=== PATIENT | male | born 1950 | race African-American/Black ===

== ENCOUNTER 2016-09-15 12:52 | Emergency (ER) | payer MEDICARE, OTHER ==
[2016-09-15] MEDS ORDERED: SODIUM CHLORIDE 0.9% 1,000 ML IV STA (14:31)
--- NOTE | 2016-09-15 14:33 | ED ---
General Adult HPI - General Chief complaint: Abdominal Pain Stated complaint: R side pain Time Seen by Provider: 09/15/16 14:26 Source: patient, RN notes reviewed Mode of arrival: ambulatory Limitations: no limitations - History of Present Illness Initial comments: Patient is 66-year-old male significant past medical history for hypertension, diabetes, who presents emergency room today with chief complaint of right sided lower back pain. Denies any injury or trauma. Does admit that it's been ongoing over the last 3 days. Denies anything that makes it better or worse. Does admit that he went to [facility] was given ibuprofen which has not made any difference with his symptoms. Patient denies any other complaints or symptoms at this time. Patient denies any recent fever, chills, shortness of breath, chest pain, abdominal pain, nausea or vomiting, numbness or tingling, dysuria or hematuria, constipation or diarrhea, headaches or visual changes, or any other complaints. - Related Data Home Medications Medication Instructions Recorded Confirmed Donepezil [Aricept] 5 mg PO DAILY 09/15/16 09/15/16 Insulin Aspart [NovoLOG] 6 unit SQ AC-TID 09/15/16 09/15/16 Insulin Glargine [Lantus] 25 unit SQ HS 09/15/16 09/15/16 Multivitamins, Thera [Multivitamin 1 tab PO DAILY 09/15/16 09/15/16 (formulary)] cloNIDine HCL 0.3 mg PO TID 09/15/16 09/15/16 hydrALAZINE HCL 50 mg PO BID 09/15/16 09/15/16 Previous Rx's Medication Instructions Recorded Ibuprofen [Motrin] 600 mg PO Q6HR PRN #20 day 09/15/16 Allergies Allergy/AdvReac Type Severity Reaction Status Date / Time No Known Allergies Allergy Verified 09/15/16 14:44 Review of Systems ROS Statement: Those systems with pertinent positive or pertinent negative responses have been documented in the HPI. ROS Other: All systems not noted in ROS Statement are negative. Past Medical History Past Medical History: Diabetes Mellitus, Hypertension History of Any Multi-Drug Resistant Organisms: None Reported Past Surgical History: Orthopedic Surgery Past Psychological History: No Psychological Hx Reported Smoking Status: Current every day smoker Past Alcohol Use History: None Reported Past Drug Use History: None Reported General Exam - General Exam Comments Initial Comments: General: The patient is awake and alert, in no distress, and does not appear acutely ill. Eye: Pupils are equal, round and reactive to light, extra-ocular movements are intact. No nystagmus. There is normal conjunctiva bilaterally. No signs of icterus. Ears, nose, mouth and throat: There are moist mucous membranes and no oral lesions. Neck: The neck is supple, there is no tenderness or JVD. Cardiovascular: There is a regular rate and rhythm. No murmur, rub or gallop is appreciated. Respiratory: Lungs are clear to auscultation, respirations are non-labored, breath sounds are equal. No wheezes, stridor, rales, or rhonchi. Gastrointestinal: Soft, non-distended, non-tender abdomen without masses or organomegaly noted. There is no rebound or guarding present. No CVA tenderness. Bowel sounds are unremarkable. Musculoskeletal: Normal ROM, no tenderness. Strength 5/5. Sensation intact. Pulses equal bilaterally 2+. Neurological: A&O x 3. CN II-XII intact, There are no obvious motor or sensory deficits. Coordination appears grossly intact. Speech is normal. Skin: Skin is warm and dry and no rashes or lesions are noted. Psychiatric: Cooperative, appropriate mood & affect, normal judgment. Limitations: no limitations Course Vital Signs 09/15/16 09/15/16 09/15/16 13:22 14:57 16:30 Temperature 98.5 F 98.0 F Pulse Rate 67 55 L 60 Respiratory 20 16 16 Rate Blood Pressure 169/95 176/88 165/85 O2 Sat by Pulse 99 98 96 Oximetry 09/15/16 09/15/16 17:33 18:34 Temperature 97.9 F 97.8 F Pulse Rate 53 L 51 L Respiratory 18 18 Rate Blood Pressure 200/94 207/91 O2 Sat by Pulse 97 97 Oximetry Medical Decision Making - Medical Decision Making CT reviewed and shows no acute changes. Labs been reviewed. Patient resting comfortably here in the emergency room. At this time patient discharged home advise follow up with family doctor over the next 2 days. Advised return if any symptoms increase or worsen. Patient states understanding and is in agreement. - Lab Data Result diagrams: 09/15/16 17:15 09/15/16 17:15 Lab Results 09/15/16 09/15/16 09/15/16 Range/Units 15:36 17:15 17:15 WBC 6.6 (3.8-10.6) k/uL RBC 5.27 (4.30-5.90) m/uL Hgb 15.2 (13.0-17.5) gm/dL Hct 47.6 (39.0-53.0) % MCV 90.2 (80.0-100.0) fL MCH 28.9 (25.0-35.0) pg MCHC 32.0 (31.0-37.0) g/dL RDW 13.4 (11.5-15.5) % Plt Count 191 (150-450) k/uL Neutrophils % 57 % Lymphocytes % 33 % Monocytes % 4 % Eosinophils % 3 % Basophils % 1 % Neutrophils # 3.8 (1.3-7.7) k/uL Lymphocytes # 2.2 (1.0-4.8) k/uL Monocytes # 0.2 (0-1.0) k/uL Eosinophils # 0.2 (0-0.7) k/uL Basophils # 0.1 (0-0.2) k/uL PT (9.0-12.0) sec INR (<1.1) APTT (22.0-30.0) sec Sodium 146 H (137-145) mmol/L Potassium 4.2 (3.5-5.1) mmol/L Chloride 110 H (98-107) mmol/L Carbon Dioxide 20 L (22-30) mmol/L Anion Gap 16 mmol/L BUN 18 (9-20) mg/dL Creatinine 1.20 (0.66-1.25) mg/dL Est GFR (MDRD) Af Amer >60 (>60 ml/min/1.73 sqM) Est GFR (MDRD) Non-Af >60 (>60 ml/min/1.73 sqM) Glucose 82 (74-99) mg/dL Calcium 10.1 (8.4-10.2) mg/dL Total Bilirubin 0.9 (0.2-1.3) mg/dL AST 21 (17-59) U/L ALT 32 (21-72) U/L Alkaline Phosphatase 77 (38-126) U/L Total Protein 8.0 (6.3-8.2) g/dL Albumin 5.1 H (3.5-5.0) g/dL Amylase 98 (30-110) U/L Lipase 127 (23-300) U/L Urine Color Yellow Urine Appearance Clear (Clear) Urine pH 6.5 (5.0-8.0) Ur Specific [place] 1.010 (1.001-1.035) Urine Protein 1+ H (Negative) Urine Glucose (UA) Negative (Negative) Urine Ketones Negative (Negative) Urine Blood Negative (Negative) Urine Nitrite Negative (Negative) Urine Bilirubin Negative (Negative) Urine Urobilinogen <2.0 (<2.0) mg/dL Ur Leukocyte Esterase Negative (Negative) Urine RBC <1 (0-5) /hpf Urine WBC 1 (0-5) /hpf Hyaline Casts 4 H (0-2) /lpf Urine Mucus Rare H (None) /hpf 09/15/16 Range/Units 17:15 WBC (3.8-10.6) k/uL RBC (4.30-5.90) m/uL Hgb (13.0-17.5) gm/dL Hct (39.0-53.0) % MCV (80.0-100.0) fL MCH (25.0-35.0) pg MCHC (31.0-37.0) g/dL RDW (11.5-15.5) % Plt Count (150-450) k/uL Neutrophils % % Lymphocytes % % Monocytes % % Eosinophils % % Basophils % % Neutrophils # (1.3-7.7) k/uL Lymphocytes # (1.0-4.8) k/uL Monocytes # (0-1.0) k/uL Eosinophils # (0-0.7) k/uL Basophils # (0-0.2) k/uL PT 10.7 (9.0-12.0) sec INR 1.1 (<1.1) APTT 24.3 (22.0-30.0) sec Sodium (137-145) mmol/L Potassium (3.5-5.1) mmol/L Chloride (98-107) mmol/L Carbon Dioxide (22-30) mmol/L Anion Gap mmol/L BUN (9-20) mg/dL Creatinine (0.66-1.25) mg/dL Est GFR (MDRD) Af Amer (>60 ml/min/1.73 sqM) Est GFR (MDRD) Non-Af (>60 ml/min/1.73 sqM) Glucose (74-99) mg/dL Calcium (8.4-10.2) mg/dL Total Bilirubin (0.2-1.3) mg/dL AST (17-59) U/L ALT (21-72) U/L Alkaline Phosphatase (38-126) U/L Total Protein (6.3-8.2) g/dL Albumin (3.5-5.0) g/dL Amylase (30-110) U/L Lipase (23-300) U/L Urine Color Urine Appearance (Clear) Urine pH (5.0-8.0) Ur Specific [place] (1.001-1.035) Urine Protein (Negative) Urine Glucose (UA) (Negative) Urine Ketones (Negative) Urine Blood (Negative) Urine Nitrite (Negative) Urine Bilirubin (Negative) Urine Urobilinogen (<2.0) mg/dL Ur Leukocyte Esterase (Negative) Urine RBC (0-5) /hpf Urine WBC (0-5) /hpf Hyaline Casts (0-2) /lpf Urine Mucus (None) /hpf Disposition Clinical Impression: Acute low back pain Disposition: HOME SELF-CARE Condition: Stable Instructions: Acute Low Back Pain (ED) Additional Instructions: Please use medication as discussed. Please follow-up with family doctor in the next 2 days. Please return to emergency room if the symptoms increase or worsen or for any other concerns. Prescriptions: Ibuprofen [Motrin] 600 mg PO Q6HR PRN #20 day PRN Reason: Pain Referrals: Nai Hopper MD [Primary Care Provider] - 1-2 days Time of Disposition: 18:44
--- NOTE | 2016-09-15 15:33 | XR ---
EXAMINATION TYPE: XR KUB DATE OF EXAM: 09/15/2016 COMPARISON: NONE HISTORY: Right flank pain TECHNIQUE: One view abdominal series FINDINGS: The osseous structures are intact. The bowel gas pattern is nonspecific. Retained fecal debris throu ghout the colon. Curvature the spine with hypertrophic and degenerative changes. Arthropathy of the h ips correlate for femoral acetabular impingement. Calcifications in the pelvis are nonspecific but may be vascular. IMPRESSION: 1. Nonspecific abdomen.
[2016-09-15 15:56] LABS: Appearance,Urine Clear (Clear); Bilirubin,Urine Negative (Negative); Glucose,Urine (UA) Negative (Negative); Ketones,Urine Negative (Negative); Leukocyte Esterase,Urine Negative (Negative); Mucus,Urine Rare /hpf; Nitrite,Urine Negative (Negative); PH, Urine 6.5 (5.0-8.0); Particle Count 861; Protein,Urine 1+ (Negative); RBC,Urine <1 /hpf (0-5); UA Billing (MACRO vs. MICRO) MICRO; Urobilinogen,Urine <2.0 mg/dL (<2.0); WBC,Urine 1 /hpf (0-5)
[2016-09-15] MEDS ORDERED: KETOROLAC 30 MG/ML 1 ML VIAL IVP STA (17:23)
[2016-09-15 17:34] VITALS: RESP 18
[2016-09-15 17:35] LABS: Basophils # (A) 0.1 k/uL (0-0.2); Basophils % (A) 1 %; CH 28.2; CHCM 31.4; Eosinophils # (A) 0.2 k/uL (0-0.7); Eosinophils % (A) 3 %; HCT 47.6 % (39.0-53.0); HDW 2.18; HGB 15.2 gm/dL (13.0-17.5); INR 1.1 (<1.1); Luc # (Auto) 0.13; Luc % (Auto) 2; Lymphocytes # (A) 2.2 k/uL (1.0-4.8); Lymphocytes % (A) 33 %; MCH 28.9 pg (25.0-35.0); MCV 90.2 fL (80.0-100.0); Mean Platelet Volume 7.3; Monocytes # (A) 0.2 k/uL (0-1.0); Monocytes % (A) 4 %; Neutrophils # (A) 3.8 k/uL (1.3-7.7); Neutrophils % (A) 57 %; Partial Thromboplastin Time 24.3 sec (22.0-30.0); Prothrombin Time 10.7 sec (9.0-12.0); RBC 5.27 m/uL (4.30-5.90); RDW 13.4 % (11.5-15.5); WBC 6.6 k/uL (3.8-10.6); WBC (Perox) 7.12
[2016-09-15] MEDS ORDERED: cloNIDine HCL 0.1 MG TAB PO STA (17:35)
[2016-09-15] MEDS ORDERED: hydrALAZINE HCL 50 MG TAB PO STA (17:37)
[2016-09-15 17:45] LABS: ALT 32 U/L (21-72); AST 21 U/L (17-59); Alkaline Phosphatase 77 U/L (38-126); Amylase 98 U/L (30-110); Anion Gap 16 mmol/L; Blood Urea Nitrogen 18 mg/dL (9-20); Calcium 10.1 mg/dL (8.4-10.2); Carbon Dioxide 20 mmol/L (22-30); Chloride 110 mmol/L (98-107); Glucose 82 mg/dL (74-99); Non-African American GFR(MDRD) >60 (>60 ml/min/1.73 sqM); Potassium 4.2 mmol/L (3.5-5.1); Sodium 146 mmol/L (137-145); Total Bilirubin 0.9 mg/dL (0.2-1.3)
--- NOTE | 2016-09-15 18:30 | CT ---
EXAMINATION TYPE: CT abdomen pelvis wo con DATE OF EXAM: 09/15/2016 COMPARISON: NONE HISTORY: RLQ pain. CT DLP: 274.2 mGycm Automated exposure control for dose reduction was used. TECHNIQUE: Helical acquisition of images was performed from the lung bases through the pelvis. FINDINGS: There is mild subsegmental atelectasis at the posterior lung bases. There is no pleural effusion. Liver spleen pancreas gallbladder appear normal. Bile ducts are not dilated. There is a 2.5 cm cortic al cyst on the upper pole right kidney. There is a 3 cm cortical cyst upper pole left kidney. There i s no hydronephrosis. Ureters are not dilated. There is no retroperitoneal adenopathy. There is no asc ites. Bladder distends smoothly. I see no bony destructive process. Appendix appears normal. There is atherosclerotic vascular calcification. There is mild retained fecal material in the colon. IMPRESSION: NORMAL APPENDIX. MINIMAL CONSTIPATION. ATHEROSCLEROTIC VASCULAR DISEASE. BILATERAL RENAL CORTICAL CYS TS. MINIMAL SUBSEGMENTAL ATELECTASIS AT THE LUNG BASES.
[2016-09-15 18:35] VITALS: PULSE 51; TEMP 97.8
[2016-09-15 19:02] VITALS: BP 191/93
== END 2016-09-15 19:02 | disposition home or self-care (01) ==
LOC: EC 12:52
DX: M54.5 Low back pain (principal); E11.9 Type 2 diabetes mellitus without complications; I10 Essential (primary) hypertension; F17.200 Nicotine dependence, unspecified, uncomplicated; Z79.4 Long term (current) use of insulin; Z79.899 Other long term (current) drug therapy
CPT/HCPCS: 99284 ×2; 96374 ×2; 96361 ×3; 36415; 80053; 82150; 83690; 85025; 85610; 85730; 81001; 74000; 74176; J1885

== ENCOUNTER 2017-08-02 15:57 | Inpatient (IN) | payer MEDICARE, OTHER ==
[2017-08-02] MEDS ORDERED: SODIUM CHLORIDE 0.9% 500 ML IV STA (15:59)
[2017-08-02] MEDS ORDERED: SODIUM CHLORIDE 0.9% 1,000 ML IV STA (15:59)
--- NOTE | 2017-08-02 16:08 | ED ---
Syncope HPI - General Source: patient, EMS, RN notes reviewed, old records reviewed Mode of arrival: EMS - History of Present Illness MD Complaint: loss of consciousness <Osvaldo Carvalho - Last Filed: 08/02/17 16:21> <Abdirahman Umanzor - Last Filed: 08/02/17 17:40> - General Stated Complaint: syncope Time Seen by Provider: 08/02/17 15:57 - History of Present Illness Initial Comments: This is a 67-year-old male history of hypertension diabetes and senile dementia who had apparently a syncopal episode at home just prior to admission some unclear how long he was actually out for he had is reported from family members to EMS personnel that he had seizure-like activity. EMS was called and when they responded he was awake alert oriented 3 but when they got him up to move to the stretcher he passed out for about 15-20 seconds with no evidence of any seizure activity. Regain consciousness as soon as he became horizontal on the floor. No reports of trauma no fevers chills or sweats no focal weakness no headaches no other symptoms reported. He did maintain adequate pulse and blood pressure and glucose. Patient does admit he is a smoker. He did smoke just prior to arrival. (Osvaldo Carvalho) - Related Data Home Medications Medication Instructions Recorded Confirmed Multivitamins, Thera [Multivitamin 1 tab PO DAILY 09/15/16 08/02/17 (formulary)] hydrALAZINE HCL 100 mg PO BID 09/15/16 08/02/17 Donepezil [Aricept] 10 mg PO DAILY 08/02/17 08/02/17 amLODIPine [Norvasc] 10 mg PO DAILY 08/02/17 08/02/17 Allergies Allergy/AdvReac Type Severity Reaction Status Date / Time No Known Allergies Allergy Verified 09/15/16 14:44 Review of Systems ROS Other: All systems not noted in ROS Statement are negative. <Osvaldo Carvalho - Last Filed: 08/02/17 16:21> ROS Other: All systems not noted in ROS Statement are negative. <Abdirahman Umanzor - Last Filed: 08/02/17 17:40> ROS Statement: Those systems with pertinent positive or pertinent negative responses have been documented in the HPI. Past Medical History Past Medical History: Diabetes Mellitus, Hypertension History of Any Multi-Drug Resistant Organisms: None Reported Past Surgical History: Orthopedic Surgery Past Psychological History: No Psychological Hx Reported Smoking Status: Current every day smoker Past Alcohol Use History: None Reported Past Drug Use History: None Reported <Osvaldo Carvalho - Last Filed: 08/02/17 16:21> General Exam General appearance: alert, in no apparent distress Head exam: Present: atraumatic, normocephalic, normal inspection Eye exam: Present: normal appearance, PERRL, EOMI. Absent: scleral icterus, conjunctival injection, periorbital swelling ENT exam: Present: mucous membranes dry Neck exam: Present: normal inspection. Absent: tenderness, meningismus, lymphadenopathy Respiratory exam: Present: normal lung sounds bilaterally. Absent: respiratory distress, wheezes, rales, rhonchi, stridor Cardiovascular Exam: Present: regular rate, normal rhythm, normal heart sounds. Absent: systolic murmur, diastolic murmur, rubs, gallop, clicks GI/Abdominal exam: Present: soft, normal bowel sounds. Absent: distended, tenderness, guarding, rebound, rigid Extremities exam: Present: normal inspection, full ROM, normal capillary refill. Absent: tenderness, pedal edema, joint swelling, calf tenderness Back exam: Present: normal inspection Neurological exam: Present: alert, oriented X3, CN II-XII intact Psychiatric exam: Present: normal affect, normal mood Skin exam: Present: warm, dry, intact, normal color. Absent: rash <Osvaldo Carvalho - Last Filed: 08/02/17 16:21> <Abdirahman Umanzor - Last Filed: 08/02/17 17:40> - General Exam Comments Initial Comments: This is a well-developed well-nourished awake alert oriented 3 male (DevenOsvaldo) General: The patient is awake and alert, in no distress at all GCS is 15, he is confused but very pleasant Skin: Skin is warm and dry and no rashes or lesions are noted. Eye: Pupils are equal, round and reactive to light, extra-ocular movements are intact; there is normal conjunctiva bilaterally. Ears, nose, mouth and throat: There are moist mucous membranes and no oral lesions. Neck: The neck is supple, there is no tenderness or JVD. Cardiovascular: Is regular rate and rhythms Respiratory: To auscultation bilateral, crease breath sounds bilateral Gastrointestinal: Soft, non-distended, non-tender abdomen without masses or organomegaly noted. There is no rebound or guarding present. Bowel sounds are unremarkable. Back: There is no tenderness to palpation in the midline. There is no obvious deformity. Musculoskeletal: Normal ROM, no tenderness, There is no pedal edema. There is no calf tenderness or swelling. No cords were appreciated. Neurological: CN II-XII intact, Cranial nerves III through XII are intact. There are no obvious motor or sensory deficits. Coordination appears grossly intact. Speech is normal. Psychiatric: Cooperative, seems happy at this time him and homicidalideation (Abdirahman Umanzor) Course <Osvaldo Carvalho - Last Filed: 08/02/17 16:21> <Abdirahman Umanzor - Last Filed: 08/02/17 17:40> Vital Signs 08/02/17 08/02/17 15:59 17:27 Temperature 99.0 F Pulse Rate 89 Pulse Rate [ 78 Right Sitting Pulse Oximetery ] Pulse Rate [ 80 Right Standing Pulse Oximetery ] Pulse Rate [ 72 Right Supine Pulse Oximetery ] Respiratory 18 Rate Blood Pressure 162/69 Blood Pressure 118/66 [Right Arm Sitting] Blood Pressure 136/70 [Right Arm Standing] Blood Pressure 116/63 [Right Arm Supine] O2 Sat by Pulse 92 L Oximetry Patient is reassessed, his CBC d-dimer, compressive metabolic panel unremarkable creatinine is 1.[address] is normal chest x-rays normal. He passed out twice within 20 minutes and family believes he had a seizure we need to assess him further since he has dementia and is not a good historian been admitted to Dr. Steiner's service and mobile up will consult neurology (Abdirahman Umanzor) - Reevaluation(s) Reevaluation #1: 08/02/17 16:21 The patient's care is endorsed to Dr. Umanzor at our shift change (Osvaldo Carvalho) EKG Findings - EKG Results: EKG: interpreted by [facility], sinus rhythm (Sinus rhythm rate of 83. Interval 156 QRS duration 78 QT since QTC 372/[address] configuration) <Osvaldo Carvalho - Last Filed: 08/02/17 16:21> Medical Decision Making - Lab Data Result diagrams: 08/02/17 16:32 08/02/17 16:16 <Abdirahman Umanzor - Last Filed: 08/02/17 17:40> - Lab Data Lab Results 08/02/17 08/02/17 08/02/17 Range/Units 16:16 16:16 16:16 WBC (3.8-10.6) k/uL RBC (4.30-5.90) m/uL Hgb (13.0-17.5) gm/dL Hct (39.0-53.0) % MCV (80.0-100.0) fL MCH (25.0-35.0) pg MCHC (31.0-37.0) g/dL RDW (11.5-15.5) % Plt Count (150-450) k/uL Neutrophils % % Lymphocytes % % Monocytes % % Eosinophils % % Basophils % % Neutrophils # (1.3-7.7) k/uL Lymphocytes # (1.0-4.8) k/uL Monocytes # (0-1.0) k/uL Eosinophils # (0-0.7) k/uL Basophils # (0-0.2) k/uL PT 11.1 (9.0-12.0) sec INR 1.1 (<1.2) APTT 18.9 L (22.0-30.0) sec D-Dimer 0.55 (<0.60) mg/L FEU Sodium 144 (137-145) mmol/L Potassium 3.7 (3.5-5.1) mmol/L Chloride 110 H (98-107) mmol/L Carbon Dioxide 22 (22-30) mmol/L Anion Gap 12 mmol/L BUN 22 H (9-20) mg/dL Creatinine 1.28 H (0.66-1.25) mg/dL Est GFR (CKD-EPI)AfAm 67 (>60 ml/min/1.73 sqM) Est GFR (CKD-EPI)NonAf 58 (>60 ml/min/1.73 sqM) Glucose 123 H (74-99) mg/dL Calcium 8.8 (8.4-10.2) mg/dL Magnesium 1.9 (1.6-2.3) mg/dL Total Bilirubin 0.4 (0.2-1.3) mg/dL AST 25 (17-59) U/L ALT 31 (21-72) U/L Alkaline Phosphatase 54 (38-126) U/L Total Creatine Kinase 260 H (55-170) U/L CK-MB (CK-2) 2.7 H* (0.0-2.4) ng/mL CK-MB (CK-2) Rel Index 1.0 Troponin I <0.012 (0.000-0.034) ng/mL Total Protein 6.1 L (6.3-8.2) g/dL Albumin 3.8 (3.5-5.0) g/dL 08/02/17 Range/Units 16:32 WBC 6.7 (3.8-10.6) k/uL RBC 4.20 L (4.30-5.90) m/uL Hgb 12.0 L (13.0-17.5) gm/dL Hct 36.4 L (39.0-53.0) % MCV 86.6 (80.0-100.0) fL MCH 28.5 (25.0-35.0) pg MCHC 32.9 (31.0-37.0) g/dL RDW 14.5 (11.5-15.5) % Plt Count 218 (150-450) k/uL Neutrophils % 67 % Lymphocytes % 23 % Monocytes % 4 % Eosinophils % 4 % Basophils % 1 % Neutrophils # 4.5 (1.3-7.7) k/uL Lymphocytes # 1.6 (1.0-4.8) k/uL Monocytes # 0.3 (0-1.0) k/uL Eosinophils # 0.2 (0-0.7) k/uL Basophils # 0.0 (0-0.2) k/uL PT (9.0-12.0) sec INR (<1.2) APTT (22.0-30.0) sec D-Dimer (<0.60) mg/L FEU Sodium (137-145) mmol/L Potassium (3.5-5.1) mmol/L Chloride (98-107) mmol/L Carbon Dioxide (22-30) mmol/L Anion Gap mmol/L BUN (9-20) mg/dL Creatinine (0.66-1.25) mg/dL Est GFR (CKD-EPI)AfAm (>60 ml/min/1.73 sqM) Est GFR (CKD-EPI)NonAf (>60 ml/min/1.73 sqM) Glucose (74-99) mg/dL Calcium (8.4-10.2) mg/dL Magnesium (1.6-2.3) mg/dL Total Bilirubin (0.2-1.3) mg/dL AST (17-59) U/L ALT (21-72) U/L Alkaline Phosphatase (38-126) U/L Total Creatine Kinase (55-170) U/L CK-MB (CK-2) (0.0-2.4) ng/mL CK-MB (CK-2) Rel Index Troponin I (0.000-0.034) ng/mL Total Protein (6.3-8.2) g/dL Albumin (3.5-5.0) g/dL Disposition <Osvaldo Carvalho - Last Filed: 08/02/17 16:21> Is patient prescribed a controlled substance at d/c from ED?: No When asked, does pt state using other controlled substances?: No If prescribed controlled substance>3 days was MAPS reviewed?: No If opioid is for acute pain is fill amount 7 days or less?: No If Rx opioid, was Start Talking consent form obtained?: No <Abdirahman Umanzor - Last Filed: 08/02/17 17:40> Clinical Impression: Syncope, Seizure disorder Disposition: ADMITTED IP TO THIS HOSP Condition: Good Referrals: None,Stated [Primary Care Provider] - 1-2 days
--- NOTE | 2017-08-02 16:32 | XR ---
EXAMINATION TYPE: XR chest 2V DATE OF EXAM: 08/02/2017 COMPARISON: NONE HISTORY: Shortness of breath TECHNIQUE: Frontal and lateral views of the chest are obtained. FINDINGS: Scattered senescent parenchymal changes noted. No evidence for infiltrate. No evidence for atelectasis. Heart size is stable. Mediastinal structures are stable and grossly unremarkable. No evidence for hilar prominence. Degenerative changes dorsal spine. IMPRESSION: 1. No evidence for acute pulmonary disease.
[2017-08-02 16:33] LABS: Albumin 3.8 g/dL (3.5-5.0); Calcium 8.8 mg/dL (8.4-10.2); Magnesium 1.9 mg/dL (1.6-2.3); Potassium 3.7 mmol/L (3.5-5.1); Total Bilirubin 0.4 mg/dL (0.2-1.3); Total Protein 6.1 g/dL (6.3-8.2)
[2017-08-02 16:42] LABS: Basophils % (A) 1 %; Eosinophils # (A) 0.2 k/uL (0-0.7); Eosinophils % (A) 4 %; HCT 36.4 % (39.0-53.0); Lymphocytes # (A) 1.6 k/uL (1.0-4.8); Lymphocytes % (A) 23 %; MCH 28.5 pg (25.0-35.0); MCHC 32.9 g/dL (31.0-37.0); MCV 86.6 fL (80.0-100.0); Monocytes # (A) 0.3 k/uL (0-1.0); Monocytes % (A) 4 %; Neutrophils # (A) 4.5 k/uL (1.3-7.7); Neutrophils % (A) 67 %; Platelet Count 218 k/uL (150-450); RDW 14.5 % (11.5-15.5); WBC 6.7 k/uL (3.8-10.6)
[2017-08-02 16:44] LABS: Creatine Kinase 260 U/L (55-170); D-Dimer 0.55 mg/L FEU (<0.60); INR 1.1 (<1.2); Prothrombin Time 11.1 sec (9.0-12.0)
--- NOTE | 2017-08-02 16:44 | CT ---
EXAMINATION TYPE: CT brain wo con DATE OF EXAM: 08/02/2017 COMPARISON: 06/23/2009 HISTORY: Syncope today. CT DLP: 1046.9 mGycm Automated exposure control for dose reduction was used. FINDINGS: There is bilateral hypodensity in the frontal lobe hall and white matter consistent with old infarct. There is no mass effect nor midline shift. There is no sign of intracranial hemorrhage. The calvariu m is intact. There is some mucosal thickening in the ethmoid sinuses. There is old right frontal cran iotomy defect. IMPRESSION: OLD BILATERAL FRONTAL LOBE INFARCTS OR ENCEPHALOMALACIA. THIS IS LARGER ON THE RIGHT SIDE. ETHMOID AN D MAXILLARY SINUSITIS. BRAIN IS UNCHANGED COMPARED TO OLD EXAM.
[2017-08-02 16:49] LABS: Partial Thromboplastin Time 18.9 sec (22.0-30.0)
[2017-08-02 16:56] LABS: Troponin I <0.012 ng/mL (0.000-0.034)
[2017-08-02 16:58] LABS: Creatine Kinase MB 2.7 ng/mL (0.0-2.4)
[2017-08-02] MEDS ORDERED: NALOXONE 0.4 MG/ML 1 ML VIAL IV PRN (17:41)
[2017-08-02] MEDS ORDERED: ACETAMINOPHEN TAB 325 MG TAB PO PRN (17:41)
[2017-08-02 18:45] LABS: Amorphous Sediment,Urine Rare /hpf; Appearance,Urine Clear (Clear); Bacteria,Urine Rare /hpf; Bilirubin,Urine Negative (Negative); Blood,Urine Negative (Negative); Color,Urine Yellow; Glucose,Urine (UA) Negative (Negative); Hyaline Casts,Urine 3 /lpf (0-2); Ketones,Urine Negative (Negative); Leukocyte Esterase,Urine Negative (Negative); Mucus,Urine Rare /hpf; Nitrite,Urine Negative (Negative); PH, Urine 6.5 (5.0-8.0); Protein,Urine 1+ (Negative); Specific Gravity,Urine 1.008 (1.001-1.035); Urobilinogen,Urine <2.0 mg/dL (<2.0); WBC,Urine 3 /hpf (0-5)
--- NOTE | 2017-08-02 19:38 | HP ---
HISTORY AND PHYSICAL CHIEF COMPLAINTS: Syncope and seizure. HISTORY OF PRESENT ILLNESS: This 67-year-old gentleman with a past medical history of hypertension, diabetes mellitus, being followed by Dr. Hopper in the outpatient setting, was taken to [facility] with complaints of syncope. The first time at home the patient apparently had a generalized tonic-clonic seizure after the syncope, according to the family. EMS was called and subsequently they got him up to move him to the stretcher, and the patient passed out for about 15 or 20 minutes; and no evidence of any seizures, seizure activity. The patient was postictally confused, unable to recall anything, and the patient was admitted for further evaluation and treatment. A CT scan of the brain showed no acute abnormality except old bilateral frontal lobe infarctions or encephalomalacia. There is no history of any fever, rigor or chills. No history of headache, loss of consciousness, seizures. PAST MEDICAL HISTORY: 1. History of old stroke. 2. Hypertension. 3. Diabetes mellitus. 4. DJD. HOME MEDICATIONS: 1. Hydralazine 100 mg p.o. b.i.d. 2. Norvasc 10 mg daily. 3. Multivitamins 1 p.o. daily. 4. Aricept 10 mg daily. ALLERGIES: NONE. FAMILY HISTORY: No history of heart disease or strokes in the family. SOCIAL HISTORY: History of smoking; continued ongoing. REVIEW OF SYSTEMS: ENT: No diminished hearing. No diminished vision. CARDIOVASCULAR SYSTEM: No angina, palpitations. RESPIRATORY SYSTEM: No cough, hemoptysis. GI: No nausea, vomiting. : No dysuria or retention. NERVOUS SYSTEM: No numbness, weakness. ALLERGY/IMMUNOLOGY: No asthma, hayfever. MUSCULOSKELETAL: As mentioned earlier. HEMATOLOGY/ONCOLOGY: No history of anemia. ENDOCRINE: No history of diabetes, hypothyroidism. CONSTITUTIONAL: As mentioned earlier. DERMATOLOGY: Negative. RHEUMATOLOGY: Negative. PSYCHIATRY: As mentioned earlier. PHYSICAL EXAMINATION: Patient is alert, oriented x3. Pulse is 78, blood pressure 118/66, respiration 22, temperature 99 degrees, pulse ox 92% on 2 L. HEENT: Conjunctivae normal. Oral mucosa moist. NECK: No jugular venous distention. No carotid bruit. No lymph node enlargement. CARDIOVASCULAR SYSTEM: S1, S2 muffled. No S3. No S4. RESPIRATORY SYSTEM: Breath sounds diminished at the bases. A few scattered rhonchi and crackles. ABDOMEN: Soft, non-tender. No mass palpable. LEGS: No edema. No swelling. NERVOUS SYSTEM: Higher functions as mentioned earlier. Moves all 4 limbs. No focal motor or sensory deficit. LYMPHATICS: No lymph node palpable in neck, axillae or groin. SKIN: No ulcer, rash, bleeding. LABS: WBC 6.3, hemoglobin is 12, creatinine 1.28. ASSESSMENT: 1. Syncope, possibly seizures. 2. Dehydration with mild acute renal failure. 3. Bilateral frontal lobe infarcts or encephalomalacia. 4. Hypertension. 5. Diabetes mellitus, type 2. 6. History of continued ongoing nicotine dependence. RECOMMENDATIONS AND DISCUSSION: In this 67-year-old gentleman who presented with multiple complex medical issues, we will monitor the patient closely. Neuro checks and neurology evaluation. Neurovascular workup. I would also continue with current medications, seizure precautions. Monitor blood sugars closely. I would also recommend DVT prophylaxis. Guarded prognosis because of the multiple complex medical issues. Discussed with the patient. Further recommendations to follow. Also recommend repeat labs as well as cautious IV fluids. Further recommendations to follow. MMODL / IJN: [id number] /
[2017-08-02 20:55] VITALS: BMI 24.3
[2017-08-02 20:56] LABS: Glucose,Whole Blood 213 mg/dL (75-99)
[2017-08-02] MEDS: HEPARIN SODIUM,PORCINE 5,000 UNIT/ML 1 ML VIAL SQ SCH (21:03)
[2017-08-02] MEDS: SODIUM CHLORIDE 0.9% 1,000 ML IV SCH (21:04)
[2017-08-02] MEDS: hydrALAZINE HCL 50 MG TAB PO SCH (21:04)
[2017-08-02] MEDS: ASPIRIN 81 MG PO SCH (21:04)
[2017-08-02] MEDS: INSULIN ASPART 100 UNIT/ML 1 ML 10 ML VIAL SQ SCH (21:08)
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
[2017-08-02 21:34] LABS: Appearance,Urine Clear (Clear); Bilirubin,Urine Negative (Negative); Blood,Urine Negative (Negative); Color,Urine Colorless; Glucose,Urine (UA) 3+ (Negative); Ketones,Urine Negative (Negative); Leukocyte Esterase,Urine Negative (Negative); Nitrite,Urine Negative (Negative); Protein,Urine Negative (Negative); Specific Gravity,Urine 1.005 (1.001-1.035); Urobilinogen,Urine <2.0 mg/dL (<2.0)
[2017-08-02 21:47] LABS: Amphetamine Screen,Urine Not Detected (NotDetected); Barbiturate Screen,Urine Not Detected (NotDetected); Benzodiazepines Screen,Urine Not Detected (NotDetected); Cocaine Screen,Urine Not Detected (NotDetected); Methadone Screen, Urine Not Detected (NotDetected); Opiate Screen,Urine Not Detected (NotDetected); Oxycodone Screen, Urine Not Detected (NotDetected); Phencyclidine Screen,Urine Not Detected (NotDetected); Tricyclic Antidepressant,Urine Not Detected (NotDetected); Urn Cannabinoid Scrn Not Detected (NotDetected)
[2017-08-03 06:15] LABS: Glucose,Whole Blood 110 mg/dL (75-99)
[2017-08-03 06:20] LABS: Basophils # (A) 0.1 k/uL (0-0.2); Basophils % (A) 1 %; Eosinophils # (A) 0.3 k/uL (0-0.7); Eosinophils % (A) 4 %; HCT 39.1 % (39.0-53.0); HGB 12.7 gm/dL (13.0-17.5); Lymphocytes # (A) 2.1 k/uL (1.0-4.8); Lymphocytes % (A) 27 %; MCH 28.4 pg (25.0-35.0); MCHC 32.5 g/dL (31.0-37.0); MCV 87.4 fL (80.0-100.0); Mean Platelet Volume 7.3; Monocytes # (A) 0.3 k/uL (0-1.0); Monocytes % (A) 3 %; Neutrophils # (A) 4.9 k/uL (1.3-7.7); Neutrophils % (A) 63 %; Platelet Count 210 k/uL (150-450); RBC 4.47 m/uL (4.30-5.90); RDW 14.6 % (11.5-15.5); WBC 7.8 k/uL (3.8-10.6)
[2017-08-03 06:33] LABS: Potassium 4.6 mmol/L (3.5-5.1)
[2017-08-03] MEDS: INSULIN ASPART 100 UNIT/ML 1 ML 10 ML VIAL SQ SCH ×3 (06:37→17:31)
[2017-08-03] MEDS ORDERED: PANTOPRAZOLE 40 MG TABLET PO SCH (07:30)
[2017-08-03] MEDS ORDERED: amLODIPine 10 MG TAB PO SCH (09:00)
[2017-08-03] MEDS ORDERED: DONEPEZIL 10 MG TAB PO SCH (09:00)
[2017-08-03] MEDS: SODIUM CHLORIDE 0.9% 1,000 ML IV SCH (09:15)
[2017-08-03] MEDS: hydrALAZINE HCL 50 MG TAB PO SCH (09:16)
[2017-08-03] MEDS: ASPIRIN 81 MG PO SCH (09:16)
[2017-08-03] MEDS: HEPARIN SODIUM,PORCINE 5,000 UNIT/ML 1 ML VIAL SQ SCH (09:17)
[2017-08-03 09:37] VITALS: RESP 18
[2017-08-03 11:55] LABS: Glucose,Whole Blood 150 mg/dL (75-99)
[2017-08-03] MEDS ORDERED: MULTIVITAMINS, THERA 1 EACH TAB PO SCH (12:00)
[2017-08-03 13:05] LABS: Hemoglobin A1C 6.3 % (4.0-6.0)
[2017-08-03 16:32] LABS: Glucose,Whole Blood 128 mg/dL (75-99)
[2017-08-03 16:49] VITALS: TEMP 97.1
--- NOTE | 2017-08-03 17:51 | EEG ---
ELECTROENCEPHALOGRAM REPORT DATE OF EE08/03/2017. REFERRING PHYSICIAN: Dr. Steiner. ELECTROENCEPHALOGRAPHIC EXAMINATION REPORT: INDICATION FOR EXAMINATION: This patient is a 67-year-old male being evaluated for syncope versus seizure. AGE: [age]. EEG FINDINGS: A routine 21 channel awake digital EEG recording was accomplished utilizing the 10-20 international system with bipolar and referential montages. The background activity in the most alert resting state consists of a low to medium amplitude, fairly well- developed and sustained 6-7 Hz activity over the posterior head regions. This posterior rhythm attenuates to eye opening. There is a small amount of low amplitude 18-20 Hz beta activity seen maximally over the anterior head regions. Muscle and movement artifact was observed on a few occasions during the tracing. Hyperventilation was not performed. Photic stimulation at flash frequencies of 2-30 Hz produced a good symmetrical occipital driving response. No epileptiform discharges were seen. IMPRESSION: This EEG is mildly abnormal in diffuse fashion due to slight slowing of the EEG background. The EEG failed to reveal any focal, lateralized, or epileptiform abnormalities. Clinical correlation is recommended. MMODL / IJN: [id number] /
[2017-08-03 18:33] VITALS: BP 146/86; PULSE 80
--- NOTE | 2017-08-03 21:57 | DS ---
DISCHARGE SUMMARY DATE OF SERVICE: 08/03/17. FINAL DIAGNOSES: 1. Possible syncope, possible seizure. 2. Dehydration with mild acute renal failure. 3. Bilateral frontal lobe infarcts, encephalomalacia. 4. Hypertension. 5. Diabetes type 2. 6. History of ongoing nicotine dependence. DISCHARGE DISPOSITION: The patient is being discharged in stable condition with guarded prognosis and neurology cleared for discharge. HISTORY OF PRESENT ILLNESS: This 67-year-old gentleman the past medical history of multiple medical problems, admitted with possible seizures, syncope. Patient treated symptomatically, improved significantly. On exam vitals are stable. Cardiovascular: S1, S2. Central nervous system: No focal deficits. DISCHARGE ADVICE AND MEDICATIONS: 1. Discharge diet is cardiac diet. 2. Activity limited until followup. 3. Follow up with Dr. Hopper in 2-3 days. 4. Follow up with Dr. Chloé Zarate as advised. MEDICATION: 1. Ecotrin 81 mg p.o. daily. 2. Norvasc 10 mg p.o. daily. 3. Aricept 10 mg b.i.d. 4. Hydralazine 100 mg p.o. b.i.d. 5. Multivitamins 1 p.o. daily. Once again, the patient is being discharged in stable condition with guarded prognosis. MMODL / IJN: [id number] /
--- NOTE | 2017-08-04 11:25 | P.PN ---
Subjective Progress Note Date: 08/03/17 This patient is a 67-year-old -[place]inamese male who was admitted to hospital yesterday for possible new onset seizure activity. Patient had 2 or 3 spells at home in which she was unresponsive. He was admitted to hospital yesterday for further evaluation. Patient is resting comfortably at this time. He denies any further spells or seizure-like events. Patient has been doing much better today and seems to be up and ambulating in his room without any difficulties. He has had no further passing out spells or seizure like events. He was able to complete a routine EEG today which was reviewed and is showing only mild slowing with no evidence of any epileptiform discharges. As his EEG as nonepileptic at this time we are not recommending placing him on anticonvulsant medications. If he were to have further recurrence of seizure- like events he will need reevaluation at that time. Case was discussed at length today with the patient. He is aware of our discharge planning and he will be discharged to home later today. He is to follow-up in the outpatient neurology clinic in 3-4 weeks. Objective - Vital Signs Vital signs: Vital Signs Temp 97.0 F L 08/03/17 09:10 Pulse 73 08/03/17 09:10 Resp 18 08/03/17 09:10 BP 163/86 08/03/17 09:10 Pulse Ox 96 08/03/17 09:10 Intake & Output 08/02/17 08/03/17 08/03/17 18:59 06:59 18:59 Intake Total 360 Output Total 200 675 Balance -200 -315 Weight 74.843 kg 74.3 kg Intake: Oral 360 Output: Urine 200 675 Other: Voiding Method Urinal # Voids 2 - Exam Physical examination: PHYSICAL EXAMINATION: Patient is resting comfortably in bed. VITAL SIGNS: Blood pressure is [146/86]. Heart rate is [80]. Respiration is [18] . Temperature is [97.1]. HEENT: Head is atraumatic, neck is supple, there were no carotid bruits. CHEST: Lungs are clear to auscultation and percussion. CARDIAC: S1, S2 normal rate and rhythm. There is no murmur. ABDOMEN: Soft and nontender. Bowel sounds are present. EXTREMITIES: There is no pedal edema. Peripheral pulses are present. Neurological examination: Patient's neurological examination is unchanged from yesterday. - Labs CBC & Chem 7: 08/03/17 05:49 08/03/17 05:49 Labs: Abnormal Lab Results - Last 24 Hours (Table) 08/02/17 08/02/17 08/02/17 Range/Units 16:15 16:16 16:16 RBC (4.30-5.90) m/uL Hgb (13.0-17.5) gm/dL Hct (39.0-53.0) % APTT 18.9 L (22.0-30.0) sec Chloride (98-107) mmol/L Carbon Dioxide (22-30) mmol/L POC Glucose (mg/dL) (75-99) mg/dL Hemoglobin A1c (4.0-6.0) % Total Creatine Kinase 260 H (55-170) U/L CK-MB (CK-2) 2.7 H* (0.0-2.4) ng/mL Urine Protein 1+ H (Negative) Urine Glucose (UA) (Negative) Amorphous Sediment Rare H (None) /hpf Urine Bacteria Rare H (None) /hpf Hyaline Casts 3 H (0-2) /lpf Urine Mucus Rare H (None) /hpf 08/02/17 08/02/17 08/02/17 Range/Units 16:32 20:55 21:24 RBC 4.20 L (4.30-5.90) m/uL Hgb 12.0 L (13.0-17.5) gm/dL Hct 36.4 L (39.0-53.0) % APTT (22.0-30.0) sec Chloride (98-107) mmol/L Carbon Dioxide (22-30) mmol/L POC Glucose (mg/dL) 213 H (75-99) mg/dL Hemoglobin A1c (4.0-6.0) % Total Creatine Kinase (55-170) U/L CK-MB (CK-2) (0.0-2.4) ng/mL Urine Protein (Negative) Urine Glucose (UA) 3+ H (Negative) Amorphous Sediment (None) /hpf Urine Bacteria (None) /hpf Hyaline Casts (0-2) /lpf Urine Mucus (None) /hpf 08/03/17 08/03/17 08/03/17 Range/Units 05:49 05:49 05:49 RBC (4.30-5.90) m/uL Hgb 12.7 L (13.0-17.5) gm/dL Hct (39.0-53.0) % APTT (22.0-30.0) sec Chloride 113 H (98-107) mmol/L Carbon Dioxide 21 L (22-30) mmol/L POC Glucose (mg/dL) (75-99) mg/dL Hemoglobin A1c 6.3 H (4.0-6.0) % Total Creatine Kinase (55-170) U/L CK-MB (CK-2) (0.0-2.4) ng/mL Urine Protein (Negative) Urine Glucose (UA) (Negative) Amorphous Sediment (None) /hpf Urine Bacteria (None) /hpf Hyaline Casts (0-2) /lpf Urine Mucus (None) /hpf 08/03/17 08/03/17 08/03/17 Range/Units 06:14 11:54 16:30 RBC (4.30-5.90) m/uL Hgb (13.0-17.5) gm/dL Hct (39.0-53.0) % APTT (22.0-30.0) sec Chloride (98-107) mmol/L Carbon Dioxide (22-30) mmol/L POC Glucose (mg/dL) 110 H 150 H 128 H (75-99) mg/dL Hemoglobin A1c (4.0-6.0) % Total Creatine Kinase (55-170) U/L CK-MB (CK-2) (0.0-2.4) ng/mL Urine Protein (Negative) Urine Glucose (UA) (Negative) Amorphous Sediment (None) /hpf Urine Bacteria (None) /hpf Hyaline Casts (0-2) /lpf Urine Mucus (None) /hpf Assessment and Plan (1) Seizure disorder Status: Acute Code(s): G40.909 - EPILEPSY, UNSP, NOT INTRACTABLE, WITHOUT STATUS EPILEPTICUS SNOMED Code(s): 552737778 (2) Dementia Status: Acute Code(s): F03.90 - UNSPECIFIED DEMENTIA WITHOUT BEHAVIORAL DISTURBANCE SNOMED Code(s): 37473724 (3) Acute encephalopathy Status: Acute Code(s): G93.40 - ENCEPHALOPATHY, UNSPECIFIED SNOMED Code(s): 80812081 (4) Syncope Status: Acute Code(s): R55 - SYNCOPE AND COLLAPSE SNOMED Code(s): 054623666 Plan: This patient is a 67-year-old male who was omitted hospital with symptoms of syncope versus seizure. Patient had episode of unresponsiveness at home and was brought into the hospital for further evaluation. He underwent a computed tomography scan of the brain which failed to reveal any acute stroke or hemorrhage. He underwent routine EEG today which is reviewed and reveals only mild to moderate slowing with no epileptiform discharges. At this time patient does not require anticonvulsant therapy. If he were to have repeat witnessed seizure events he will need reevaluation at that time. He does have a history of underlying dementia and should continue on his current medications. His case was discussed at length today but Dr. Steiner's nurse practitioner and she will be discharging the patient home. He may follow-up in the outpatient neurology clinic in 3-4 weeks.
--- NOTE | 2017-08-14 10:03 | CDI ---
Last Revision, February 2017 Documentation Clarification Form Date: 08/14/17 From: Tanesha Dominguez Phone: If you have a question regarding this query, please contact Syl Kline at [phone] between 8am and 5pm. Admit Date: 08/02/2017 5:41:00 PM Patient Name: Nabil Bauman Visit Number: [id number] Discharge Date: 08/03/17 ATTENTION: The Clinical Documentation Specialists (CDI) and [facility] Coding Staff appreciate your assistance in clarifying documentation. Please respond to the clarification below the line at the bottom and electronically sign. The CDI & [facility] Coding staff will review the response and follow-up if needed. Please note: Queries are made part of the Legal Health Record. If you have any questions, please contact the author of this message via ITS. Dr. Rebecca Zarate Acute encephalopathy is documented in your consult note and progress note. History/Risk factors: Patient was admitted with possible syncope and possible seizure. Patient has senile dementia. EEG: The EEG is mildly abnormal in diffuse fashion due to slight slowing of the EEG background. The EEG failed to reveal any focal, lateralized or epileptiform abnormalities. CT/MRI Brain: Old bilateral frontal lobe infarcts or encephalomalacia. This is larger on the right side. Ethmoid and maxillary sinusitis. Brain is unchanged compared to old exam. In your professional opinion, can you please clarify the specific type of encephalopathy, if known? Hypertensive Encephalopathy Metabolic Encephalopathy Toxic Encephalopathy Causal Condition: Alcoholism, Hepatitis, other disease process? Other, please specify Unable to determine MTDD
== END 2017-08-03 18:52 | disposition home or self-care (01) | DRG 312 ==
LOC: EC 15:57 → 6SEL 17:41
PROVIDERS: ADMIT Hospitalist; ATTEND Hospitalist
DX: R55 Syncope and collapse (principal); G93.40 Encephalopathy, unspecified; N17.9 Acute kidney failure, unspecified; M19.90 Unspecified osteoarthritis, unspecified site; E11.9 Type 2 diabetes mellitus without complications; F03.90 Unspecified dementia, unspecified severity, without behavioral disturbance, psychotic disturbance, mood disturbance, and anxiety; E86.0 Dehydration; F17.200 Nicotine dependence, unspecified, uncomplicated; I10 Essential (primary) hypertension; R56.9 Unspecified convulsions; G93.89 Other specified disorders of brain; Z79.899 Other long term (current) drug therapy; Z86.73 Personal history of transient ischemic attack (TIA), and cerebral infarction without residual deficits
CPT/HCPCS: 36415; 70450; 71046; 80048; 80053; 80306; 81001; 81003; 82550; 82553; 83036; 83735; 84484; 85025; 85379; 85610; 85730; 93005; 95819; 96360; 96361; 99285

== ENCOUNTER → 2017-08-31 | Outpatient (CLI) | payer MEDICARE, OTHER ==
--- NOTE | 2017-08-31 12:29 | US ---
EXAMINATION TYPE: US carotid duplex BILAT DATE OF EXAM: 08/31/2017 COMPARISON: NONE CLINICAL HISTORY: R55 Vasovagal Syncope. Vasovagal syncope, history of TIA EXAM MEASUREMENTS: RIGHT: Peak Systolic Velocity (PSV) cm/sec ----- Right CCA: 117.1 ----- Right ICA: 88.6 ----- Right ECA: 106.0 ICA/CCA ratio: 0.8 RIGHT: End Diastole cm/sec ----- Right CCA: 25.6 ----- Right ICA: 30.2 ----- Right ECA: 12.8 LEFT: Peak Systolic Velocity (PSV) cm/sec ----- Left CCA: 106.4 ----- Left ICA: 91.1 ----- Left ECA: 91.1 ICA/CCA ratio: 0.9 LEFT: End Diastole cm/sec ----- Left CCA: 30.5 ----- Left ICA: 36.2 ----- Left ECA: 17.5 VERTEBRALS (direction of flow): Right Vertebral: Antegrade Left Vertebral: Antegrade Rhythm: Normal Minimal plaque bilateral bifurcations. No evidence of significant stenosis Some intimal thickening is evident through the common carotid arteries bifurcation. IMPRESSION: 1. Mild atheromatous plaquing without significant flow-limiting stenosis. Criteria for Assigning % of Stenosis / Diameter reduction (Estimation based on the indirect measurements of the internal carotid artery velocities (ICA PSV). 1. Normal (no stenosis)=ICA PSV < 125 cm/s: ratio < 2.0: ICA EDV<40 cm/s. 2. Less than 50% stenosis=ICA PSV < 125 cm/s: ratio < 2.0: ICA EDV<40 cm/s. 3. 50 to 69% stenosis=ICA PSV of 125 to 230 cm/s: ration 2.0 ? 4.0: ICA EDV 40-100 cm/s. 4. Greater than 70% stenosis to near occlusion= ICA PSV > 230 cm/s: ratio > 4.0: ICA EDV > 100 cm/s. 5. Near occlusion= ICA PSV velocities may be low or undetectable: variable ratio and ICA EDV. 6. Total occlusion=unable to detect flow.
== END | disposition home or self-care (01) ==
LOC: RADUSWWP 10:56
PROVIDERS: ATTEND Psychiatry & Neurology Neurology
DX: I65.23 Occlusion and stenosis of bilateral carotid arteries (principal)
CPT/HCPCS: 93880

== ENCOUNTER 2019-10-05 10:25 | Emergency (ER) | payer MEDICARE, OTHER ==
[2019-10-05 10:59] VITALS: RESP 18
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
[2019-10-05 12:53] VITALS: BP 159/88; PULSE 74; TEMP 97.8
== END 2019-10-05 12:52 | disposition home or self-care (01) ==
LOC: EC 10:25
DX: L30.9 Dermatitis, unspecified (principal); F17.200 Nicotine dependence, unspecified, uncomplicated; F03.90 Unspecified dementia, unspecified severity, without behavioral disturbance, psychotic disturbance, mood disturbance, and anxiety; Z79.899 Other long term (current) drug therapy
CPT/HCPCS: 99283

== ENCOUNTER 2019-10-31 19:52 | Emergency (ER) | payer MEDICARE, OTHER ==
[2019-10-31 19:59] VITALS: RESP 16; TEMP 98.3
[2019-10-31 20:01] LABS: Glucose,Whole Blood 134 mg/dL (75-99)
[2019-10-31] MEDS ORDERED: SODIUM CHLORIDE 0.9% 500 ML 500 ML IV STA (20:03)
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
--- NOTE | 2019-10-31 20:36 | CT ---
EXAMINATION TYPE: CT brain wo con DATE OF EXAM: 10/31/2019 COMPARISON: 08/02/2017 HISTORY: Seizure. CT DLP: 1142.4 mGycm Automated exposure control for dose reduction was used. Multiple axial sections were obtained of the brain without contrast. There is some cerebral cortical atrophy. There is extensive white matter hypodensity in both frontal lobes. There is no mass effect nor midline shift. There is previous right frontal craniotomy defect. There is no evidence of intracranial hemorrhage. There is cortical thinning both frontal lobes. There is no hydrocephalus. The calvarium is intact. The skull base is intact. IMPRESSION: Encephalomalacia in both frontal lobes with cerebral atrophy and extensive white matter hypodensity u nchanged compared to old exam. No acute intracranial abnormality.
[2019-10-31 20:44] LABS: Basophils # (A) 0.1 k/uL (0-0.2); Basophils % (A) 1 %; Eosinophils # (A) 0.2 k/uL (0-0.7); Eosinophils % (A) 3 %; HCT 38.1 % (39.0-53.0); HGB 12.4 gm/dL (13.0-17.5); Lymphocytes # (A) 3.4 k/uL (1.0-4.8); Lymphocytes % (A) 39 %; MCH 29.2 pg (25.0-35.0); MCHC 32.4 g/dL (31.0-37.0); MCV 89.9 fL (80.0-100.0); Mean Platelet Volume 7.7; Monocytes # (A) 0.4 k/uL (0-1.0); Monocytes % (A) 5 %; Neutrophils # (A) 4.5 k/uL (1.3-7.7); Neutrophils % (A) 51 %; Platelet Count 237 k/uL (150-450); RBC 4.24 m/uL (4.30-5.90); RDW 13.9 % (11.5-15.5); WBC 8.8 k/uL (3.8-10.6)
[2019-10-31 20:55] LABS: Albumin 4.1 g/dL (3.5-5.0); Calcium 9.6 mg/dL (8.4-10.2); Potassium 3.8 mmol/L (3.5-5.1); Total Bilirubin 0.5 mg/dL (0.2-1.3); Total Protein 6.5 g/dL (6.3-8.2)
[2019-10-31 21:03] VITALS: BP 150/82; PULSE 69
== END 2019-10-31 21:27 | disposition home or self-care (01) ==
LOC: EC 19:52
DX: E86.0 Dehydration (principal); R55 Syncope and collapse; F03.90 Unspecified dementia, unspecified severity, without behavioral disturbance, psychotic disturbance, mood disturbance, and anxiety; G93.89 Other specified disorders of brain; F17.200 Nicotine dependence, unspecified, uncomplicated; E11.9 Type 2 diabetes mellitus without complications; I10 Essential (primary) hypertension; Z79.84 Long term (current) use of oral hypoglycemic drugs; Z79.899 Other long term (current) drug therapy
CPT/HCPCS: 36415; 70450; 80053; 85025; 93005; 99285

== ENCOUNTER 2023-01-27 17:13 | Observation (INO) | payer MEDICARE, OTHER ==
[2023-01-27] MEDS ORDERED: SODIUM CHLORIDE 0.9% 1,000 ML IV ONE (17:36)
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
[2023-01-27 19:46] LABS: ALT 18 U/L (4-49); African American GFR (CKD) 63 (>60 ml/min/1.73 sqM); Albumin 3.7 g/dL (3.5-5.0); Alcohol <10 mg/dL; Anion Gap 11 mmol/L; Blood Urea Nitrogen 18 mg/dL (9-20); Carbon Dioxide 20 mmol/L (22-30); Chloride 109 mmol/L (98-107); Glucose 150 mg/dL (74-99); Non-African American GFR(CKD) 55 (>60 ml/min/1.73 sqM); Sodium 140 mmol/L (137-145); Total Bilirubin 0.9 mg/dL (0.2-1.3)
[2023-01-27 19:49] LABS: AST 28 U/L (17-59); Potassium 4.2 mmol/L (3.5-5.1); Total Protein 6.3 g/dL (6.3-8.2)
[2023-01-27 19:50] LABS: Alkaline Phosphatase 43 U/L (38-126)
[2023-01-27 20:04] LABS: Appearance,Urine Clear (Clear); Bilirubin,Urine Negative (Negative); Blood,Urine Trace (Negative); Color,Urine Colorless; Glucose,Urine (UA) 3+ (Negative); Ketones,Urine Negative (Negative); Leukocyte Esterase,Urine Negative (Negative); Nitrite,Urine Negative (Negative); Protein,Urine 1+ (Negative); RBC,Urine 1 /hpf (0-5); Specific Gravity,Urine 1.005 (1.001-1.035); Urobilinogen,Urine <2.0 mg/dL (<2.0); WBC,Urine <1 /hpf (0-5)
[2023-01-27] MEDS ORDERED: MORPHINE SULFATE 4 MG/ML SYRINGE IV PRN (20:04)
[2023-01-27] MEDS ORDERED: ONDANSETRON 4 MG/2 ML VIAL IVP PRN (20:04)
[2023-01-27] MEDS ORDERED: NALOXONE 0.4 MG/ML 1 ML VIAL IV PRN (20:04)
[2023-01-27] MEDS ORDERED: LACTULOSE 20 GM/30 ML CUP PO ONE (20:05)
[2023-01-27 20:19] LABS: Amphetamine Screen,Urine Not Detected (NotDetected); Barbiturate Screen,Urine Not Detected (NotDetected); Benzodiazepines Screen,Urine Not Detected (NotDetected); Cocaine Screen,Urine Not Detected (NotDetected); Methadone Screen, Urine Not Detected (NotDetected); Opiate Screen,Urine Not Detected (NotDetected); Oxycodone Screen, Urine Not Detected (NotDetected); Phencyclidine Screen,Urine Not Detected (NotDetected); Tricyclic Antidepressant,Urine Not Detected (NotDetected); Urn Cannabinoid Scrn Not Detected (NotDetected)
[2023-01-27 20:21] LABS: Valproic Acid (Depakene) <10.0 ug/mL
[2023-01-27 20:24] LABS: INR 1.5 (<1.2); Partial Thromboplastin Time 23.8 sec (22.0-30.0); Prothrombin Time 15.3 sec (10.0-12.5)
[2023-01-27] MEDS: SODIUM CHLORIDE 0.9% 1,000 ML IV SCH (20:41)
[2023-01-27 21:05] LABS: Basophils % (A) 0 %; Eosinophils # (A) 0.3 k/uL (0-0.7); Eosinophils % (A) 5 %; HCT 41.8 % (39.0-53.0); HGB 13.8 gm/dL (13.0-17.5); Lymphocytes # (A) 1.8 k/uL (1.0-4.8); Lymphocytes % (A) 28 %; MCH 29.4 pg (25.0-35.0); MCHC 32.9 g/dL (31.0-37.0); MCV 89.2 fL (80.0-100.0); Mean Platelet Volume 7.9; Monocytes # (A) 0.4 k/uL (0-1.0); Monocytes % (A) 6 %; Neutrophils # (A) 3.9 k/uL (1.3-7.7); Neutrophils % (A) 59 %; Platelet Count 199 k/uL (150-450); RBC 4.69 m/uL (4.30-5.90); RDW 13.8 % (11.5-15.5); WBC 6.5 k/uL (3.8-10.6)
--- NOTE | 2023-01-27 21:22 | CT ---
EXAMINATION TYPE: CT brain wo con CT DLP: 1153.4 mGycm, Automated exposure control for dose reduction was used. DATE OF EXAM: 01/27/2023 7:37 PM COMPARISON: CT head 10/31/2019. CLINICAL INDICATION:Male, 72 years old with history of Altered mental status, AMS. TECHNIQUE: Brain: Axial CT images of the brain were obtained with coronal and sagittal reformats created and rev iewed. Contrast used: None. Oral contrast used: None. FINDINGS: Brain: Extra-axial spaces: No abnormal extra-axial fluid collections. Ventricular system: Appear dilated in proportion to cerebral atrophy. Cerebral parenchyma: No acute intraparenchymal hemorrhage or mass effect. The hall-white matter int erface appears maintained. Redemonstration of mild generalized atrophy with relatively large areas of encephalomalacia in the bilateral frontal lobes, right greater than left, similar in appearance to t apple prior study. Moderate patchy areas of white matter hypoattenuation in the bilateral cerebral hemis pheres, most likely related to chronic microvascular ischemia. Cerebellum: No acute abnormality. Mass effect: No evidence of midline shift. Intracranial vasculature: Atherosclerotic calcifications of the larger arteries near the skull base. Soft tissues: Normal. Calvarium/osseous structures: No evidence of calvarial fracture. Old amie holes in the right frontal bone. Paranasal sinuses and mastoid air cells: No significant fluid. Lobular mucosal thickening involving t he left greater than right maxillary sinuses. Visualized orbits: Orbital contents appear grossly intact. MRI is more sensitive for detecting acute processes such as infarct, and may be considered if clinica lly warranted. IMPRESSION: No acute intracranial CT abnormality. Overall stable intracranial findings compared to prior.
[2023-01-27] MEDS ORDERED: hydrALAZINE HCL 25 MG TAB PO STA (22:04)
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
[2023-01-28] MEDS ORDERED: hydrALAZINE HCL 25 MG TAB PO STA (01:55)
[2023-01-28 02:21] VITALS: TEMP 97.7
[2023-01-28] MEDS: SODIUM CHLORIDE 0.9% 1,000 ML IV SCH (05:17)
[2023-01-28 06:20] LABS: Acetaminophen <10.0 ug/mL; Salicylate <1.0 mg/dL
[2023-01-28] MEDS ORDERED: INSULIN ASPART (NovoLOG) 100 UNIT/ML VIAL SQ SCH (07:30)
[2023-01-28 07:42] LABS: Glucose,Whole Blood 106 mg/dL (70-110)
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
[2023-01-28 07:55] VITALS: PULSE 57; RESP 17
[2023-01-28 08:26] LABS: Basophils % (A) 1 %; Eosinophils # (A) 0.3 k/uL (0-0.7); Eosinophils % (A) 5 %; HCT 43.1 % (39.0-53.0); HGB 13.7 gm/dL (13.0-17.5); Lymphocytes # (A) 1.7 k/uL (1.0-4.8); Lymphocytes % (A) 27 %; MCH 28.7 pg (25.0-35.0); MCHC 31.8 g/dL (31.0-37.0); MCV 90.5 fL (80.0-100.0); Mean Platelet Volume 8.4; Monocytes # (A) 0.4 k/uL (0-1.0); Monocytes % (A) 6 %; Neutrophils # (A) 3.8 k/uL (1.3-7.7); Neutrophils % (A) 59 %; Platelet Count 244 k/uL (150-450); RBC 4.76 m/uL (4.30-5.90); WBC 6.3 k/uL (3.8-10.6)
[2023-01-28 08:47] LABS: ALT 19 U/L (4-49); AST 24 U/L (17-59); African American GFR (CKD) 57 (>60 ml/min/1.73 sqM); Albumin 4.2 g/dL (3.5-5.0); Albumin/Globulin Ratio 1.5; Alkaline Phosphatase 73 U/L (38-126); Anion Gap 12 mmol/L; Blood Urea Nitrogen 15 mg/dL (9-20); Calcium 9.5 mg/dL (8.4-10.2); Carbon Dioxide 22 mmol/L (22-30); Chloride 108 mmol/L (98-107); Globulin 2.8 g/dL; Glucose 112 mg/dL (74-99); Magnesium 1.7 mg/dL (1.6-2.3); Non-African American GFR(CKD) 50 (>60 ml/min/1.73 sqM); Phosphorus 3.2 mg/dL (2.5-4.5); Potassium 4.4 mmol/L (3.5-5.1); Sodium 142 mmol/L (137-145); Total Bilirubin 1.3 mg/dL (0.2-1.3)
[2023-01-28] MEDS ORDERED: LOSARTAN 50 MG TAB PO SCH (09:00)
[2023-01-28] MEDS ORDERED: amLODIPine 10 MG TAB PO SCH (09:00)
[2023-01-28] MEDS ORDERED: ATORVASTATIN 10 MG TAB PO SCH (09:00)
[2023-01-28] MEDS ORDERED: SPIRONOLACTONE 25 MG TAB PO SCH (09:00)
[2023-01-28] MEDS ORDERED: ASPIRIN 81 MG PO SCH (09:00)
[2023-01-28] MEDS ORDERED: DONEPEZIL 10 MG TAB PO SCH (09:00)
[2023-01-28] MEDS ORDERED: POTASSIUM CHLORIDE ER 10 MEQ TAB.ER.PRT PO SCH (09:00)
[2023-01-28] MEDS ORDERED: ENOXAPARIN 40 MG/0.4 ML SYRINGE SQ SCH (09:00)
[2023-01-28] MEDS ORDERED: METOPROLOL SUCCINATE (ER) 100 MG TAB.ER.24H PO SCH (09:00)
[2023-01-28] MEDS ORDERED: LACTULOSE 20 GM/30 ML CUP PO SCH (09:00)
[2023-01-28 10:26] VITALS: BP 167/90
--- NOTE | 2023-01-28 10:33 | P.DS ---
Providers Date of admission: 01/27/23 20:04 Expected date of discharge: 01/28/23 Attending physician: Dwight Pozo MD Primary care physician: [facility] Course: Altered mental status, suspect secondary to mild hepatic encephalopathy, with baseline mild dementia History of Hepatitis C infection, unknown status Hypertensive urgency Chronic conditions: Type II DM Hospital Course: Patient is a 72-year-old male with a PMH of hepatitis C (secondary to history of IV drug use), mild dementia, type II DM, and hypertension who was brought to the emergency room by family for confusion and elevated blood pressure. In the emergency room a CT brain was unremarkable with EKG showing sinus rhythm at [address]/T-wave changes noted as reviewed by me. Laboratory evaluation was remarkable for ammonia of 39, with AST 28, ALT 18, alk phos 43, creatinine 1.3 (baseline 1.1), with WBC count 6.5. Pt was started on lactulose and evaluated again the following day after admission. He was noted to have resolution of his AMS. Cr was 1.4 on discharge and patient advised to hold metformin until BMP rechecked by PCP. Gen: awake, alert HEENT: normocephalic, atraumatic, good hearing acuity, moist mucous membranes Resp: good air exchange, breathing comfortably with no accessory muscle use CVS: good distal perfusion x 4, GI: soft, NTTP, ND : no SPT, no CVAT, chen catheter not present MSK: no pitting edema, no clubbing Neuro: non-focal, moving all extremities Psych: cooperative, euthymic mood Patient Condition at Discharge: Fair Plan - Discharge Summary Discharge Rx Participant: No New Discharge Prescriptions: New Lactulose [Cephulac] 20 gm PO TID #90 each Continue amLODIPine [Norvasc] 10 mg PO DAILY Donepezil [Aricept] 10 mg PO DAILY Aspirin 81 mg PO DAILY chew Atorvastatin Calcium [Lipitor] 10 mg PO DAILY Metoprolol Succinate [Toprol XL] 100 mg PO DAILY Potassium Chloride ER [K-Dur 10] 10 meq PO DAILY metFORMIN HCL 1,000 mg PO BID-W/MEALS #0 Dapagliflozin Propanediol [Farxiga] 5 mg PO DIRECTED Losartan [Cozaar] 50 mg PO BID Spironolactone [Aldactone] 25 mg PO DAILY Discharge Medication List Donepezil [Aricept] 10 mg PO DAILY 08/02/17 [History] amLODIPine [Norvasc] 10 mg PO DAILY 08/02/17 [History] Aspirin 81 mg PO DAILY chew 08/03/17 [Rx] Atorvastatin Calcium [Lipitor] 10 mg PO DAILY 10/31/19 [History] Metoprolol Succinate [Toprol XL] 100 mg PO DAILY 10/31/19 [History] Dapagliflozin Propanediol [Farxiga] 5 mg PO DIRECTED 01/27/23 [History] Losartan [Cozaar] 50 mg PO BID 01/27/23 [History] Potassium Chloride ER [K-Dur 10] 10 meq PO DAILY 01/27/23 [History] Spironolactone [Aldactone] 25 mg PO DAILY 01/27/23 [History] Lactulose [Cephulac] 20 gm PO TID #90 each 01/28/23 [Rx] metFORMIN HCL 1,000 mg PO BID-W/MEALS #0 01/28/23 [Rx] Follow up Appointment(s)/Referral(s): [facility] [Primary Care Provider] - 1-2 days (Please recheck BMP prior to restarting metformin) Discharge Disposition: HOME SELF-CARE
== END 2023-01-28 12:27 | disposition home or self-care (01) ==
LOC: EC 17:13 → 5NMEDONC 20:04
PROVIDERS: ADMIT Internal Medicine; ATTEND Internal Medicine
DX: K76.82 Hepatic encephalopathy (principal); I16.0 Hypertensive urgency; F03.A0 Unspecified dementia, mild, without behavioral disturbance, psychotic disturbance, mood disturbance, and anxiety; E72.20 Disorder of urea cycle metabolism, unspecified; B19.20 Unspecified viral hepatitis C without hepatic coma; E11.9 Type 2 diabetes mellitus without complications; I10 Essential (primary) hypertension; G40.909 Epilepsy, unspecified, not intractable, without status epilepticus; F17.200 Nicotine dependence, unspecified, uncomplicated; Z79.82 Long term (current) use of aspirin; Z79.84 Long term (current) use of oral hypoglycemic drugs; Z79.899 Other long term (current) drug therapy
CPT/HCPCS: 96372; 96360; 96361; 99285; 36415; 93005; 86803; 80164; 80053 ×2; 82140 ×2; 83735; 84100; 84484; 85025 ×2; 85610; 85730; 81001; 80306; 80143; 80320; 80179; 76705; 70450; G0378 ×2; J1650